=== PATIENT | male | born 1975 | race Asian ===

== ENCOUNTER 2016-11-11 19:30 | Emergency (ER) | payer OTHER ==
[~2016-11-11] VITALS: Ht 172.7 cm; Wt 86.2 kg
[~2016-11-11 19:30] MED LIST: ANTIVERT25 MG PO; CYCLOBENZAPRINE10 M1 PO; IBUPROFEN800 M1 PO; ZOFRAN ODT4 M1 SL
--- NOTE | 2016-11-11 20:21 | ED GENERAL ADULT ---
History of Present Illness General Chief Complaint: Low Back Pain/Injury Stated Complaint: ?PINCHED NERVE IN LOWER BACK Source: patient Exam Limitations: no limitations Vital Signs & Intake/Output Vital Signs & Intake/Output Vital Signs Date Time Temp Pulse Resp B/P B/P Pulse O2 O2 Flow FiO2 Mean Ox Delivery Rate 11/11 2054 97.4 79 18 139/94 100 Room Air 11/12 1951 97.5 82 18 143/97 100 Room Air Allergies Coded Allergies: No Known Allergies (03/11/16) Reconcile Medications Diazepam (Valium) 5 MG TABLET 1 TAB PO BIDP PRN back pain/muscle spasm Lidocaine (Lidoderm) 5 % ADH..PATCH 1 PAT TOP DAILY PRN back pain may wear up to 12 hours Naproxen (Naprosyn) 500 MG TABLET 1 TAB PO BID PRN back pain Triage Note: PT TO ED FOR BILATERAL LOWER BACK MUSCLE SPASMS. REPORTING HE HAD SIMILAR EPISODE APPROX 1 YEAR AGO, IMPROVED WITH FLEXERIL AND MOTRIN, NO URINARY S/S, NO ACUTE INJURY, NO TRAUMA. Triage Nurses Notes Reviewed? yes Onset: yesterday Duration: day(s):, constant Timing: single episode yesterday HPI: 41-year-old otherwise healthy male presenting with acute back pain until yesterday. 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 Has since had bilateral lower back pain, worse with movements, better with rest. No radiation to lower extremities. He has tried Motrin with transient relief. Denies any fevers, IV drug use, saddle paresthesias, urinary/bowel incontinence/retention. (EULOGIO LOVELACE PA-C) Past History Travel History Traveled to [place] past 21 day No Medical History Any Pertinent Medical History? 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 No (EULOGIO LOVELACE PA-C) Review of Systems Review of Systems Constitutional: Reports: no symptoms. Respiratory: Reports: no symptoms. Cardiovascular: Reports: no symptoms. GI: Denies: bowel incontinence. Musculoskeletal: Reports: back pain. Denies: neck pain. Neurological/Psychological: Denies: numbness, tingling. (RADU ARIAS,EULOGIO) Physical Exam Physical Exam General Appearance: well developed/nourished, no apparent distress Respiratory: normal breath sounds, lungs clear Cardiovascular: regular rate/rhythm Back: normal inspection, normal range of motion, muscle spasm, no vertebral tenderness, neg straight leg raise Neurologic/Psych: no motor/sensory deficits, alert, oriented x 3, senior technologist II-XII nml as tested, Able to ambulate with a steady gait Core Measures ACS in differential dx? No CVA/TIA Diagnosis: No Severe Sepsis Present: No Septic Shock Present: No (RADU ARIAS,EULOGIO) Progress Differential Diagnoses I considered the following diagnoses in my evaluation of the patient: [ Musculoskeletal strain versus occult versus cauda equina versus epidural abscess.] Plan of Care: Exam consistent with musculoskeletal strain, given Lidoderm patches, naproxen, Valium. Instructed to apply warm compresses. Advised to take naproxen with a meal, and to not use Valium for driving. Will follow up with primary care provider for reevaluation. Initial ED EKG: none (RADU ARIAS,EULOGIO) Departure Departure Disposition: HOME OR SELF CARE Condition: Stable Clinical Impression Primary Impression: Low back pain Referrals: UNKNOWN (PCP/Family) Departure Forms: Customer Survey General Discharge Information Prescriptions: Current Visit Scripts Naproxen (Naprosyn) 1 TAB PO BID PRN back pain 14 Days Diazepam (Valium) 1 TAB PO BIDP PRN back pain/muscle spasm 3 Days Lidocaine (Lidoderm) 1 PAT TOP DAILY PRN back pain 14 Days may wear up to 12 hours Comments Use naproxen twice a day as needed for low back pain. Make sure to take naproxen with a meal. Apply 1 Lidoderm patch to sore area once daily as needed for low back pain. Use 1 tablet Valium nightly before bed as needed for low back pain. Do not drive before taking valium. Apply heat to sore areas for 20 minutes at a time. Follow up with your primary care provider for reevaluation. Return to the ED for any new or worsening symptoms. (EULOGIO LOVELACE PA-C) PA/RELIABILITY TECHNICIAN Co-Sign Statement Statement: ED Attending supervision documentation- I saw and evaluated the patient. I have also reviewed all the pertinent lab results and diagnostic results. I agree with the findings and the plan of care as documented in the PA's/RELIABILITY TECHNICIAN's documentation. x I have reviewed the ED Record and agree with the PA's/RELIABILITY TECHNICIAN's documentation. [] Additions or exceptions (if any) to the PAs/RELIABILITY TECHNICIAN's note and plan are summarized below: [] (REYES MASON,BUZZ) Critical Care Note Critical Care Note Critical Care Time: non-applicable (RADU ARIAS,EULOGIO)
[2016-11-11] MEDS ORDERED: NAPROSYN500 M1 PO (20:47)
[2016-11-11] MEDS ORDERED: VALIUM5 M2 PO (20:47)
[2016-11-11] MEDS ORDERED: LIDODERM1 EACH TOP (20:47)
[2016-11-11 20:55] VITALS: BP 139/94
== END 2016-11-11 20:56 ==
LOC: ERH 19:30
DX: M54.5 Low back pain (principal)

== ENCOUNTER 2016-12-05 14:32 | Emergency (ER) | payer OTHER ==
[~2016-12-05] VITALS: Ht 172.7 cm; Wt 83.9 kg
[~2016-12-05 14:32] MED LIST changes: +LIDODERM1 EACH TOP; +NAPROSYN500 M1 PO; +VALIUM5 M2 PO
--- NOTE | 2016-12-05 15:28 | ED GI/GU/ABDOMINAL COMPLAINT ---
History of Present Illness General Chief Complaint: Abdominal Pain/Flank Pain Stated Complaint: RT SIDE FLANK PAIN Source: patient Exam Limitations: no limitations Vital Signs & Intake/Output Vital Signs & Intake/Output Vital Signs Date Time Temp Pulse Resp B/P B/P Pulse O2 O2 Flow FiO2 Mean Ox Delivery Rate 12/05 1919 96.8 67 18 133/86 97 Room Air 12/05 1617 97.5 65 20 141/65 98 Room Air 12/05 1443 96.0 76 20 155/101 98 Room Air ED Intake and Output 12/06 0000 12/05 1200 Intake Total 1000 Output Total Balance 1000 Intake, IV 1000 Patient 185 lb Weight Weight Reported by Patient Measurement Method Allergies Coded Allergies: No Known Allergies (03/11/16) Triage Note: PT TO ED C/O RIGHT FLANK PAIN SINCE THIS AM. H/O KIDNEY STONE TO LEFT SIDE RECENTLY. C/O URGENCY. Triage Nurses Notes Reviewed? yes Onset: Abrupt Duration: better Timing: single episode today Quality/Severity: sharpness, stabbing Severity Numbers: 5 Location: right flank Radiation: groin Activities at Onset: none HPI: Patient is a 41-year-old male with a past medical history of kidney stones who presents emergency room with acute onset of right flank pain with groin radiation of pain that began today this morning. Patient has associated symptoms of nausea with no emesis. Patient has been able tolerate by mouth liquids. Patient took ibuprofen with r mild relief of symptoms, patient currently complains of 5/10 right flank pain with radiation to the right groin. Denies any hematuria dysuria testicular swelling back pain urethral discharge fever chills. He states that symptoms feel feel very similar to previous kidney stones (EFREN BARBOZA,DARIN) Reconcile Medications Diazepam (Valium) 5 MG TABLET 1 TAB PO BIDP PRN back pain/muscle spasm Ketorolac Tromethamine 10 MG TABLET 1 TAB PO TID PRN PAIN RECEIVED IM IN ER Lidocaine (Lidoderm) 5 % ADH..PATCH 1 PAT TOP DAILY PRN back pain may wear up to 12 hours Naproxen (Naprosyn) 500 MG TABLET 1 TAB PO BID PRN back pain Ondansetron HCl (Zofran) 4 MG TABLET 1 TAB PO Q6-8P PRN NAUSEA Oxycodone HCl/Acetaminophen (Percocet 5-325 MG Tablet) 5 MG-325 MG TABLET 1 TAB PO TID PRN PAIN Tamsulosin HCl (Flomax) 0.4 MG CAP.ER.24H 1 CAP PO DAILY PRN KIDNEY STONE (PEDRO LUIS MASON,SHARYN) Past History Travel History Traveled to [place] past 21 day No Medical History Any Pertinent Medical History? 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 No (DARIN NIELSEN) Review of Systems Review of Systems Constitutional: Reports: no symptoms. EENTM: Reports: no symptoms. Respiratory: Reports: no symptoms. Cardiovascular: Reports: no symptoms. GI: Reports: see HPI, abdominal pain. Genitourinary: Reports: no symptoms. Musculoskeletal: Reports: no symptoms. Skin: Reports: no symptoms. Neurological/Psychological: Reports: no symptoms. Hematologic/Endocrine: Reports: no symptoms. Immunologic/Allergic: Reports: no symptoms. All Other Systems: Reviewed and Negative (DARIN NIELSEN) Physical Exam Physical Exam General Appearance: no apparent distress, comfortable Gastrointestinal: normal bowel sounds, soft, RIGHT FLANK TENDERNESS,NO PERITONEAL/REBOUND TENDERNESS Comments: Well-developed well-nourished person in no acute distress HEENT: Normal EENT exam Neck: Supple, no lymphadenopathy, normal range of motion without pain or tenderness Back: Nontender, no CVA tenderness. Cardiovascular: Regular rate and rhythms no murmurs rubs or gallops, normal JVP Respiratory: Chest nontender. No respiratory distress.breath sounds clear to auscultation bilaterally Extremity: No edema, no calf tenderness to palpation, normal and equal pulses. Neuro: Alert oriented x3, motor sensory normal, Skin: No appreciable rash on exposed skin, skin is warm and dry. Psych: Mood and affect is normal, memory and judgment is normal. Core Measures ACS in differential dx? No Severe Sepsis Present: No Septic Shock Present: No (DARIN NIELSEN) Progress Differential Diagnosis: AAA, AMI, appendicitis, biliary colic, bowel obstruction , colon cancer, cholecystitis, diverticulitis, epididymitis, esophageal varices, gastritis, hepatitis, hernia, hemorrhoids, ischemic bowel, inflamm bowel dis, Elizabeth-Calvin tear, orchitis, pancreatitis, prostatitis, peptic ulcer, PUD/GERD, perforated viscous, pyelonephritis, SBO, STD, testicular torsion, ureterolithiasis, urinary retention, urethritis, UTI/pyelo Plan of Care: Orders Procedure Date/time Status URINALYSIS 12/05 153 Complete HUMAN BETA HCG SCREEN 12/05 1530 Complete COMPREHENSIVE METABOLIC PANEL 12/05 1530 Complete CBC WITHOUT DIFFERENTIAL 12/05 1530 Complete Laboratory Tests 12/05/16 1705: CBC w Diff NO MAN DIFF REQ, RBC 4.81, MCV 84.6, MCH 28.7, RDW 12.7, MPV 8.6, Gran % 77.5 H, Lymphocytes % 14.3 L, Monocytes % 7.2, Eosinophils % 0.7, Basophils % 0.3, Absolute Granulocytes 8.9 H, Absolute Lymphocytes 1.6, Absolute Monocytes 0.8 H, Absolute Eosinophils 0.1, Absolute Basophils 0, PUBS MCHC 34.0 12/05/16 1619: Urinalysis MOD H, Urine Color YEL, Urine Clarity CLEAR, Urine pH 6.0, Ur Specific [place] 1.015, Urine Protein TRACE H, Urine Ketones NEG, Urine Nitrite NEG, Urine Bilirubin NEG, Urine Urobilinogen 0.2, Ur Leukocyte Esterase NEG, Ur Microscopic SEDIMENT EXAMINED, Urine RBC RARE, Urine WBC RARE, Ur Epithelial Cells RARE, Urine Crystals 1+ HIPPURATE, Urine Bacteria FEW H, Urine Mucus FEW, Urine Hemoglobin TRACE-INTACT H, Urine Glucose NEG 12/05/16 1601: Anion Gap 12, Estimated GFR > 60, BUN/Creatinine Ratio 11.1, Glucose 126 H, Calcium 9.3, Total Bilirubin 1.7 H, AST 32, ALT 72, Alkaline Phosphatase 53, Total Protein 7.7, Albumin 4.6, Globulin 3.1, Albumin/Globulin Ratio 1.5, Total Beta HCG NEGATIVE Upon initial evaluation of the patient he was in no apparent distress. Due to history of present illness and exam findings there is concerns of kidney stone. 12/05/2016 5:31:38 PM- reevaluation the patient he does have improvement of his right flank pain. 12/05/2016 7:19:25 PM patient currently is in no apparent distress and patient does note to have a 1 mm stone in the right UVJ with mild hydronephrosis. Patient was able to tolerate by mouth. Upon discharge patient looks well no apparent distress and will comply with discharge instructions and had no questions I reviewed all blood work and CT scan with patient (EFREN BARBOZA,DARIN) Diagnostic Imaging: Viewed by Me: CT Scan. Radiology Impression: acute abnormality Initial ED EKG: none Comments: PATIENT: CEE CHAIDEZ PRESENT AGE: 41 PATIENT ACCOUNT NO: [id number] : 76 LOCATION: [facility] ORDERING PHYSICIAN: DARIN BARBOZA SERVICE DATE: 12/05/16 EXAM TYPE: CAT - CT ABD & PELVIS W/O IV CONTRAS EXAMINATION: CT ABDOMEN AND PELVIS WITHOUT CONTRAST CLINICAL INFORMATION: Right-sided flank pain. COMPARISON: None TECHNIQUE: Multidetector volumetric imaging was performed from the superior aspect of the liver through the pubic symphysis. Sagittal and coronal reformatted images were obtained on the technologist's workstation. No oral or intravenous contrast DLP: 406.66 mGy-cm FINDINGS: LUNG BASES: The visualized lung bases are unremarkable. LIVER, GALLBLADDER, AND BILIARY TREE: Diffuse low attenuation of liver due to fatty change. No focal liver lesion. No intrahepatic bile duct dilatation The gallbladder is unremarkable with no evidence of radiopaque gallstones, gallbladder wall thickening, or obvious pericholecystic inflammatory changes. PANCREAS: Unremarkable. SPLEEN: Unremarkable. ADRENAL GLANDS: Unremarkable. KIDNEYS AND URETERS: There is moderate hydronephrosis of the right kidney with dilatation of the renal pelvis calyces and hydroureter to the ureterovesical junction. There is an obstructing 1 mm stone at the right ureterovesical junction, axial image 637 (3). No additional stone in the ureter or kidney. There is an extra renal pelvis of left kidney but no hydronephrosis. No renal stone on the left. No left ureteral stone. BLADDER: Unremarkable. GASTROINTESTINAL TRACT: The small and large bowel are unremarkable. The appendix is unremarkable. ABDOMINAL WALL: No significant hernia is appreciated. LYMPH NODES: Normal. VASCULAR: Unremarkable. PELVIC VISCERA: Unremarkable. OSSEOUS STRUCTURES: Unremarkable. IMPRESSION: 1. Hydronephrosis of right kidney due to an obstructing 1 mm stone at the right ureterovesical junction. 2. Diffuse fatty change of liver. (DARIN NIELSEN) Departure Departure Disposition: HOME OR SELF CARE Condition: Stable Clinical Impression Primary Impression: Kidney stone on right side Referrals: OCTAVIO MASON,AYANA SHAVER (PCP/Family) Additional Instructions: As discussed begin the prescription of ketorolac for pain and inflammation and begin the prescription of Percocet for breakthrough pain relief. Begin the prescription of Zofran for nausea and Flomax for your kidney stone. Follow-up tomorrow with urologist for further evaluation treatment. If symptoms worsen return to emergency room. Begin using the filter provided to the emergency room to possibly catch a stone Departure Forms: Customer Survey General Discharge Information Prescriptions: Current Visit Scripts Ketorolac Tromethamine 1 TAB PO TID PRN PAIN #15 TAB RECEIVED IM IN ER Ondansetron HCl (Zofran) 1 TAB PO Q6-8P PRN NAUSEA #15 TAB Oxycodone HCl/Acetaminophen (Percocet 5-325 MG Tablet) 1 TAB PO TID PRN PAIN #8 TAB Tamsulosin HCl (Flomax) 1 CAP PO DAILY PRN KIDNEY STONE #20 CAP (DARIN NIELSEN) PA/GOLF CLUB ASSEMBLER Co-Sign Statement Statement: ED Attending supervision documentation- [] I saw and evaluated the patient. I have also reviewed all the pertinent lab results and diagnostic results. I agree with the findings and the plan of care as documented in the PA's/GOLF CLUB ASSEMBLER's documentation. [X] I have reviewed the ED Record and agree with the PA's/GOLF CLUB ASSEMBLER's documentation. [] Additions or exceptions (if any) to the PAs/GOLF CLUB ASSEMBLER's note and plan are summarized below: [] (PEDRO LUIS MASON,SHARYN)
[2016-12-05 17:32] LABS: ABSOLUTE BASOPHIL COUNT 0 /CUMM (0.0-0.2); ABSOLUTE EOSINOPHIL COUNT 0.1 /CUMM (0.0-0.7); ABSOLUTE GRANULOCYTE CT 8.9 /CUMM (1.4-6.5); ABSOLUTE LYMPH COUNT 1.6 /CUMM (1.2-3.4); ABSOLUTE MONOCYTE COUNT 0.8 /CUMM (0.10-0.60); BASOPHIL % 0.3 % (0.0-2.0); EOSINOPHIL % 0.7 % (0-5); GRANULOCYTE % 77.5 % (42.2-75.2); HEMATOCRIT 40.7 % (42-52); MEAN CORPUSCULAR HGB 28.7 PG (27.0-31.0); MEAN CORPUSCULAR VOLUME 84.6 FL (80.0-94.0); MEAN PLATELET VOLUME 8.6 FL (7.4-10.4); PLATELET COUNT 186 /CUMM (130-400); RBC DISTRIBUTION WIDTH 12.7 % (11.5-14.5); RED BLOOD CELL CT 4.81 /CUMM (4.70-6.10); WHITE BLOOD CELL COUNT 11.4 /CUMM (4.8-10.8)
--- NOTE | 2016-12-05 19:10 | CT SCAN REPORT ---
EXAMINATION: CT ABDOMEN AND PELVIS WITHOUT CONTRAST CLINICAL INFORMATION: Right-sided flank pain. COMPARISON: None TECHNIQUE: Multidetector volumetric imaging was performed from the superior aspect of the liver through the pubic symphysis. Sagittal and coronal reformatted images were obtained on the technologist's workstation. No oral or intravenous contrast DLP: 406.66 mGy-cm FINDINGS: LUNG BASES: The visualized lung bases are unremarkable. LIVER, GALLBLADDER, AND BILIARY TREE: Diffuse low attenuation of liver due to fatty change. No focal liver lesion. No intrahepatic bile duct dilatation The gallbladder is unremarkable with no evidence of radiopaque gallstones, gallbladder wall thickening, or obvious pericholecystic inflammatory changes. PANCREAS: Unremarkable. SPLEEN: Unremarkable. ADRENAL GLANDS: Unremarkable. KIDNEYS AND URETERS: There is moderate hydronephrosis of the right kidney with dilatation of the renal pelvis calyces and hydroureter to the ureterovesical junction. There is an obstructing 1 mm stone at the right ureterovesical junction, axial image 637 (3). No additional stone in the ureter or kidney. There is an extra renal pelvis of left kidney but no hydronephrosis. No renal stone on the left. No left ureteral stone. BLADDER: Unremarkable. GASTROINTESTINAL TRACT: The small and large bowel are unremarkable. The appendix is unremarkable. ABDOMINAL WALL: No significant hernia is appreciated. LYMPH NODES: Normal. VASCULAR: Unremarkable. PELVIC VISCERA: Unremarkable. OSSEOUS STRUCTURES: Unremarkable. IMPRESSION: 1. Hydronephrosis of right kidney due to an obstructing 1 mm stone at the right ureterovesical junction. 2. Diffuse fatty change of liver.
[2016-12-05 19:19] VITALS: BP 133/86
[2016-12-05] MEDS ORDERED: FLOMAX0.4 M1 PO (19:19)
[2016-12-05] MEDS ORDERED: PERCOCET 5-3251 EACH PO (19:19)
[2016-12-05] MEDS ORDERED: KETOROLAC TROME10 M1 PO (19:19)
[2016-12-05] MEDS ORDERED: ZOFRAN4 M2 PO (19:19)
== END 2016-12-05 19:36 ==
LOC: ERH 14:32
PROVIDERS: Physician Assistant
DX: N20.0 Calculus of kidney (principal)
CPT/HCPCS: 74176; 81001; 96374; 96375; J1885; J2405